=== PATIENT | female | born 1955 | race Caucasian/White ===

== ENCOUNTER 2022-05-15 12:50 | Emergency (ER) | payer MEDICARE, OTHER ==
--- NOTE | 2022-05-15 13:54 | ERPHSYRPT ---
- History of Present Illness Time Seen by Provider: 05/15/22 13:09 Source: patient Exam Limitations: no limitations Patient Subjective Stated Complaint: Dog bite. Patient bitten by own dog. States she has 2 Goldendoodle dogs and they were fighting over food when she reached between them to grab one's collar and was biten. Describes dogs as non- aggressive in nature. Triage Nursing Assessment: Patient alert and oriented and answering questions ap propriately. U-shaped laceration to back of right hand. Measures 4cm X 5.5cm. Small amount of active bleeding noted. Small abrasion also noted to 2nd digit of same hand. Abrasion measures 0.2cm X 1.2cm. No bleeing noted at this time. CMS checks to right hand/fingers WNL. Physician History: 67-year-old female unsure about tetanus status presented in the ER after she got bit by her own dog. Patient has 2 dog and they were fighting lower food and she held 1 with a collar and got bit. She has a flap laceration dorsum of right hand and also on the second digit some abrasion. Sharp shooting moderate intensity pain with movements at the fingers but no numbness or tingling/weakness in the fingers. Minimal pain while resting. Timing/Duration: today Quality: painful Severity: moderate Location: extremities Possible Causes: other Associated Symptoms: denies symptoms Allergies/Adverse Reactions: No Known Drug Allergies Allergy (Verified 05/15/22 12:54) Home Medications: Ezetimibe 10 mg [Zetia 10 MG] 1 tab PO DAILY 05/15/22 [History] LORazepam [Lorazepam] 1 tab PO HS 05/15/22 [History] Metoprolol Succinate 25 mg Xl* [Toprol-Xl 25MG Tablets] 1 tab PO DAILY 05/15/22 [History] Verapamil HCl [Verapamil ER] 1 cap PO DAILY 05/15/22 [History] Hx Tetanus, Diphtheria Vaccination/Date Given: No (NOT TETANUS) Hx Influenza Vaccination/Date Given: Yes Hx Pneumococcal Vaccination/Date Given: Yes Immunizations Up to Date: Yes Travel Risk - International Travel Have you traveled outside of the country in past 3 weeks: No - Coronavirus Screening Are you exhibiting any of the following symptoms?: No Close contact with a COVID-19 positive Pt in past 14-21 Days: No - Vaccine Status Have you recieved a Covid-19 vaccination: Yes Log Check Scaler: Pfizer - Vaccination Dates Date of 2cond Vaccination (if applicable): 2020 - Review of Systems Constitutional: No Symptoms Eyes: No Symptoms Respiratory: No Symptoms Cardiac: No Symptoms Abdominal/Gastrointestinal: No Symptoms Musculoskeletal: Injury Skin: Skin Lesions Neurological: No Symptoms Endocrine: No Symptoms Hematologic/Lymphatic: No Symptoms - Past Medical History Pertinent Past Medical History: Yes Cardiac History: High Cholesterol, Hypertension Respiratory History: Other Other Medical History: COVID in August 2021, - Past Surgical History Past Surgical History: Yes Cardiac: Cardiac Catheterization Other Surgical History: Trigger finger surgery on right middle finger - Social History Smoking Status: Never smoker Exposure to second hand smoke: No Drug Use: none Patient Lives Alone: No - Nursing Vital Signs Nursing Vital Signs: Initial Vital Signs Pulse Rate 91 H 05/15/22 12:55 Respiratory Rate 20 05/15/22 12:55 Blood Pressure 128/78 05/15/22 12:55 O2 Sat by Pulse Oximetry 94 L 05/15/22 12:55 Pain Scale Pain Intensity 6 - Physical Exam General Appearance: no apparent distress, alert Eye Exam: PERRL/EOMI Neck Exam: normal inspection, full range of motion Respiratory Exam: normal breath sounds, lungs clear Cardiovascular Exam: regular rate/rhythm, normal heart sounds Extremity Exam: lacerations (6.5 x 6 cm laceration curved with irregular edges on dorsum of right hand with visible tendons but no tendon lesion obviously noticed. Intact distal neurovascular. 1 cm laceration right index finger.), swelling, tenderness Skin Exam: normal color SpO2 Interpretation: normal SpO2: 94 O2 Delivery: Room Air Procedures - Laceration/Wound Repair Right Hand Time of Procedure: 13:52 Wound Location: Right, hand Wound Length (cm): 7 Wound's Depth, Shape: irregular Wound Explored: clean Irrigated: Yes Hibiclens Prep: Yes Anesthesia: 1% Lidocaine Volume Anesthetic (ccs): 7 Wound Debrided: minimal Wound Repaired With: sutures Suture Size/Type: 4-0 Number of Sutures: 24 Layer Closure?: No Sterile Dressing Applied?: Yes Splint Applied?: Yes Ordered Tests: Medication Summary Discontinued Medications Generic Name Dose Route Start Last Admin Trade Name Freq PRN Reason Stop Dose Admin Amoxicillin/Clavulanate Potassium 875 mg 05/15/22 13:55 05/15/22 14:17 Amox Tr/Potassium Clavulanate 875 Mg Tablet PO 05/15/22 13:56 875 mg STAT ONE Administration Amoxicillin/Clavulanate Potassium Confirm 05/15/22 14:11 Amox Tr/Potassium Clavulanate 875 Mg Tablet Administered 05/15/22 14:12 Dose 875 mg .ROUTE .STK-MED ONE Diphtheria/Tetanus/Acell Pertussis 0.5 ml 05/15/22 13:55 05/15/22 14:19 Tdap --Diph,Pertuss(Acell),Tet Vac/Pf 0.5 Ml Vial IM 05/15/22 13:56 0.5 ml .ONCE ONE Administration Diphtheria/Tetanus/Acell Pertussis Confirm 05/15/22 14:12 Tdap --Diph,Pertuss(Acell),Tet Vac/Pf 0.5 Ml Vial Administered 05/15/22 14:13 Dose 0.5 ml IM .STK-MED ONE Lidocaine HCl Confirm 05/15/22 14:15 Lidocaine Hcl 1% 20 Ml Mdv 20 Ml Ml Administered 05/15/22 14:16 Dose 1 ml .ROUTE .STK-MED ONE - Progress Progress: improved Progress Note: 05/15/22 13:53 Laceration is repaired. Recommended outpatient hand surgery follow-up as it is possible superficial skin will grow necrotic. We will give antibiotics. Discussed signs symptoms of worsening needing return to ER which she seems understanding. Counseled pt/family regarding: diagnosis, need for follow-up - Departure Departure Disposition: Home Clinical Impression: Hand laceration, Dog bite Condition: Stable Critical Care Time: No Referrals: JUAN CARLOS FERGUSON NP [Primary Care Provider] - Follow up/PCP as directed (1-2 days for reevaluation) CORNEL FISHER MD [NON-STAFF PHY W/O PRIVILEGES] - Follow up/PCP as directed (1-2 days for reevaluation) Instructions: Animal Bites (DC) Additional Instructions: Take Tylenol/ibuprofen as needed for pain. Continue with antibiotics. Follow- up with primary care and hand surgery for reevaluation. Return to ER for increasing pain swelling redness, difficulty movements of fingers, bluish discoloration of fingers, fever chills etc. Prescriptions: Ibuprofen 600 mg PO Q6HPRN PRN 10 Days #20 tablet PRN Reason: Pain Amox Tr/Potass Clav. 875 mg [Augmentin 875-125 Tablet] 875 mg PO BID #14 tablet
[2022-05-15] MEDS ORDERED: Adacel Vial IM ONE ×2 (13:55→14:12)
[2022-05-15] MEDS ORDERED: Augmentin 875-125 Tablet PO ONE (13:55)
[2022-05-15] MEDS ORDERED: Augmentin 875-125 Tablet ONE (14:11)
[2022-05-15] MEDS ORDERED: XYLOCAINE 1% HCL 20 ML MDV ONE (14:15)
[2022-05-15 15:16] VITALS: BP 123/66; PULSE 71
[2022-05-15 19:11] VITALS: O2SAT 94
== END 2022-05-15 15:00 | disposition home or self-care (01) ==
LOC: ED 12:50
DX: S61.451A Open bite of right hand, initial encounter (principal); W54.0XXA Bitten by dog, initial encounter; Y93.K9 Activity, other involving animal care; M79.641 Pain in right hand; E78.5 Hyperlipidemia, unspecified; I10 Essential (primary) hypertension; Z86.16 Personal history of COVID-19; Z79.899 Other long term (current) drug therapy
CPT/HCPCS: 12002; 90471; 90715; 99283; A9270-GY

== ENCOUNTER 2024-12-10 03:12 | Emergency (ER) | payer MEDICARE, OTHER ==
[2024-12-10] MEDS ORDERED: XYLOCAINE 1%/Epi 1:100000 MDV 20 ML ONE (03:22)
[2024-12-10 04:00] VITALS: TEMP 97
[2024-12-10] MEDS: XYLOCAINE 1%/Epi 1:100000 MDV 20 ML IJ ONE (04:03)
[2024-12-10 04:12] LABS: Absolute Neutrophil Ct (ANC) 5.11 x10^3/uL (1.56-6.13); BASOPHIL % 0.7 % (0.1-1.2); Basophil (Absolute #) 0.06 x10^3/uL (0.01-0.08); Eosinophil % 0.6 % (0.7-5.8); Eosinophil (Absolute #) 0.05 x10^3/uL (0.04-0.36); Hematocrit 35.4 % (34.1-44.9); Hemoglobin 12.4 g/dL (11.2-15.7); IMMATURE GRAN # 0.03 x10^3u/L (0.001-0.031); IMMATURE GRAN % 0.4 % (0.001-0.429); Lymphocyte (Absolute #) 2.25 x10^3/uL (1.18-3.74); Mean Cell Volume 95.7 fL (79.4-94.8); Mean Corpuscular Hemoglobin 33.5 pg (25.6-32.2); Mean Platelet Volume 9.2 fL (9.4-12.3); Monocyte (Absolute #) 0.55 x10^3/uL (0.24-0.86); Monocytes % 6.8 % (4.7-12.5); Neutrophil % 63.5 % (34.0-71.1); Platelet Count 276 x10^3/uL (182-369); Red Cell Distribution Width 12.2 % (11.7-14.4); White Blood Count 8.1 x10^3/uL (3.98-10.04)
--- NOTE | 2024-12-10 04:19 | ERPHSYRPT ---
- History of Present Illness Time Seen by Provider: 12/10/24 03:30 Source: patient Exam Limitations: no limitations Patient Subjective Stated Complaint: pt states she tripped over her dog and hit her head on the edge of the mantle. denies loss of consciousness Triage Nursing Assessment: pt alert and oriented. answers questions approp. pt ambulates to room with steady gait. respirations nonlabored. skin warm and dry. pt bleeding from the back of the head. laceration approx 3x1 cm. pupils equal and reactive. pt moves all extremities without diff. Physician History: Patient tripped over her dog and hit the back of her head on the mantle. No LOC, but unable to stop bleeding. No previous head injury. Denies weakness, change in speech, difficulty in swallowing. Occurred: just prior to arrival Severity: moderate Head Injury Location: occipital Method of Injury: direct blow, fell Loss of Consciousness: no loss of consciousness Associated Symptoms: headaches, No nausea, No vomiting, No syncope, No weakness Allergies/Adverse Reactions: No Known Drug Allergies Allergy (Verified 12/10/24 03:21) Home Medications: Ezetimibe 10 mg [Zetia 10 MG] 1 tab PO DAILY 05/15/22 [History] LORazepam [Lorazepam] 1 tab PO HS 05/15/22 [History] Metoprolol Succinate 25 mg Xl* [Toprol-Xl 25MG Tablets] 1 tab PO DAILY 05/15/22 [History] Verapamil HCl [Verapamil ER] 1 cap PO DAILY 05/15/22 [History] Hx Tetanus, Diphtheria Vaccination/Date Given: Yes (2022) Hx Influenza Vaccination/Date Given: Yes Hx Pneumococcal Vaccination/Date Given: Yes Travel Risk - International Travel Have you traveled outside of the country in past 3 weeks: No - Emerging Infectious Disease Are you exhibiting symptoms associated with any current EIDs: No - Review of Systems All Other Systems: Reviewed and Negative - Past Medical History Pertinent Past Medical History: Yes Cardiac History: High Cholesterol, Hypertension Respiratory History: Other Other Medical History: COVID in August 2021, - Past Surgical History Past Surgical History: Yes Cardiac: Cardiac Catheterization Other Surgical History: Trigger finger surgery on right middle finger - Social History Smoking Status: Never smoker Exposure to second hand smoke: No Drug Use: none Patient Lives Alone: No - Social Determinants of Health Will the patient participate in the screening: Declined to provide - Nursing Vital Signs Nursing Vital Signs: Initial Vital Signs Temperature 97.0 F 12/10/24 03:21 Pulse Rate 74 12/10/24 03:21 Respiratory Rate 16 12/10/24 03:21 Blood Pressure 142/83 12/10/24 03:21 O2 Sat by Pulse Oximetry 96 12/10/24 03:21 Pain Scale Pain Intensity 3 - [place] Coma Score Best Eye Response (Elise): (4) open spontaneously Best Verbal Response (Elise): (5) oriented Best Motor Response ([place]): (6) obeys commands Elise Total: 15 - Physical Exam General Appearance: no apparent distress Head Injury: active bleeding, lacerations, swelling, tenderness Eye Exam: bilateral eye: normal inspection, PERRL, EOMI ENT Exam: airway nml, evidence of ENT injury Neck Exam: supple, trachea midline, full range of motion, normal alignment, No tenderness Mental Status Exam: alert, oriented x 3, 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 Exam: normal hearing, normal speech, PERRL Motor/Sensory Exam: no motor deficit, no sensory deficit, no pronator drift, CN II-XII intact SpO2 Interpretation: normal SpO2: 96 O2 Delivery: Room Air Procedures - Laceration/Wound Repair Right Occipital Time of Procedure: 03:45 Wound Location: Right, head (occipital) Wound Length (cm): 3 Wound's Depth, Shape: superficial, linear, flap Wound Explored: clean Irrigated: Yes Hibiclens Prep: Yes Anesthesia: 1% lidocaine w/ Epi Volume Anesthetic (ccs): 10 Wound Debrided: minimal Wound Repaired With: sutures, Justin Suture Size/Type: 3-0, nylon Number of Sutures: 3 (used to approximate wound then followed by justin and all 3 Nylon sutures removed) Layer Closure?: No Sterile Dressing Applied?: Yes - Course Nursing assessment & vital signs reviewed: Yes Ordered Tests: Active Orders 24 hr Category Date Time Status HEAD WITHOUT CONTRAST [CT] Stat Exams 12/10/24 03:58 Completed CBC W DIFF Stat Lab 12/10/24 04:10 Completed Medication Summary Discontinued Medications Generic Name Dose Route Start Last Admin Trade Name Freq PRN Reason Stop Dose Admin Lidocaine/Epinephrine Confirm 12/10/24 03:22 Lidocaine Hcl/Epinephrine 1% 20 Ml Administered 12/10/24 03:23 Dose 5 ml .ROUTE .STK-MED ONE Lidocaine/Epinephrine 10 ml 12/10/24 04:02 12/10/24 04:03 Lidocaine Hcl/Epinephrine 1% 20 Ml IJ 12/10/24 04:03 10 ml STAT ONE Administration Lab/Rad Data: Laboratory Result Diagrams 12/10/24 04:10 Laboratory Results 12/10/24 Range/Units 04:10 WBC 8.1 (3.98-10.04) x10^3/uL RBC 3.70 L (3.93-5.22) x10^6/uL Hgb 12.4 (11.2-15.7) g/dL Hct 35.4 (34.1-44.9) % MCV 95.7 H (79.4-94.8) fL MCH 33.5 H (25.6-32.2) pg MCHC 35.0 (32.2-35.5) g/dL RDW 12.2 (11.7-14.4) % Plt Count 276 (182-369) x10^3/uL MPV 9.2 L (9.4-12.3) fL Gran % 63.5 (34.0-71.1) % Immature Gran % (Auto) 0.4 (0.001-0.429) % Nucleat RBC Rel Count 0.0 (0.00-0.2) % Eos # (Auto) 0.05 (0.04-0.36) x10^3/uL Immature Gran # (Auto) 0.03 (0.001-0.031) x10^3u/L Absolute Lymphs (auto) 2.25 (1.18-3.74) x10^3/uL Absolute Monos (auto) 0.55 (0.24-0.86) x10^3/uL Absolute Nucleated RBC 0.00 (0.00-0.012) x10^3u/L Lymphocytes % 28.0 (19.3-51.7) % Monocytes % 6.8 (4.7-12.5) % Eosinophils % 0.6 L (0.7-5.8) % Basophils % 0.7 (0.1-1.2) % Absolute Granulocytes 5.11 (1.56-6.13) x10^3/uL Basophils # 0.06 (0.01-0.08) x10^3/uL - Progress Progress: improved Progress Note: Wound cleaned and repaired with justin, hemostasis achieved after justin. Hb ordered. CT head ordered. No neuro deficits. 12/10/24 04:[address] head reviewed, no obvious fracture or bleed appreciated, official read pending. Patient declines Tylenol. Discussed concussion treatment and return precautions. Recommended f/u with PCP in 7-10 days for staple removal. 12/10/24 05:49 CT showd area of asymmetric hypodensity in the right occipital region at the site of impact, can be non hemorrhagic contusion, follow up needed, subgaleal hematoma in right occipital region 52mm x 7mm, no fracture, no intra/extra-axial hematoma. Consulted tele neuro to get their opinion on follow up of hypodensity, spoke with them at 0548 and they felt this was more artifact, recommend outpatient neuro f/u or MRI brain after justin removed if there is concern at that time. Will DC home at this time. Counseled pt/family regarding: lab results, diagnosis, need for follow-up, rad results Medical Desision Making - Diagnostic Testing Diagnostic test were ordered, analyzed, and reviewed by me: Yes Radiological Interpretation: Interpreted by me, Reviewed by me, Teleradiologist Report - Risk of complications The pt has a mod risk of morbidity or mortality based on: Need for minor surgical intervention in patient with know risk factors - Departure Departure Disposition: Home Clinical Impression: Head injury without skull fracture, Laceration of occipital region of scalp without complication, Subgaleal fluid collection Condition: Good Critical Care Time: No Referrals: JUAN CARLOS FERGUSON NP [Primary Care Provider] - Follow up/PCP as directed Instructions: Concussion, Adult (DC), Laceration Repair With [facility] Additional Instructions: MRI brain after justin removed if clinical concern remains to evaluate right occipital hypodensity.
--- NOTE | 2024-12-10 05:06 | XRAY ---
CLINICAL HISTORY: fall, bleeding, large hematoma COMPARISON: None. TECHNIQUE: An axial non-contrast CT scan of the brain was performed from the skull base to the high parietal region. One of the following dose reduction techniques was utilized for this exam: Automated exposure control, adjustment of the mA and/or kV according to patient size, and use of iterative reconstruction. CTDI: 53.92 mGy, DLP: 910 mGy-cm. FINDINGS: Brain Parenchyma: There are a few tiny ill-defined [id number] areas noted in the deep white matter bilaterally, suggestive of microvascular ischemic changes. An area of asymmetric hypodensity in the right occipital region(image 32/61). Normal attenuation of the rest of the cerebral hemispheres, cerebellum, and brainstem. No evidence of acute infarction, hemorrhage, or mass effect. There is sub galeal hematoma in the right occipital region, measuring 52 x 7 mm, with overlying surgical justin. Ventricular System: Ventricles are normal in size and configuration. No evidence of hydrocephalus or ventricular enlargement. Subarachnoid Spaces: The cortical sulci and basal cisterns are prominent consistent with senile changes. No evidence of subarachnoid hemorrhage or extra-axial fluid collections. Cerebellum and Brainstem: Normal size and signal. No masses, lesions, or areas of abnormal signal. Orbits: Normal appearance of the globes, optic nerves, and extraocular muscles. No evidence of orbital masses. Sinuses: Clear paranasal sinuses. No evidence of sinusitis or mucosal thickening. Mastoid Air Cells: Clear mastoid air cells. No evidence of mastoiditis. Skull: Normal skull morphology. No evidence of any underlying acute fracture. IMPRESSION: 1. No evidence of any intra/extra-axial hematoma. 2. An area of asymmetric hypodensity in the right occipital region at the site of impact (image 32/61), can be non-hemorrhagic contusion. Needs to follow up. 3. Subgaleal hematoma in the right occipital region, measuring 52 x 7 mm, with overlying wound and surgical justin. 4. No evidence of any underlying acute fracture. 5. Age-related involutional and microvascular ischemic changes. Electronically Signed by: Lulú Zelaya MD. (12/10/2024 05:02:47 EST)
[2024-12-10] MEDS: ZOFRAN ODT 4 MG PO ONE (05:58)
[2024-12-10] MEDS ORDERED: ZOFRAN ODT 4 MG ONE (05:58)
--- NOTE | 2024-12-10 06:16 | PCM.CONS ---
History of Present Illness - Neuro Consultation ED Arrival Date & Time: 12/10/24 03:12 Providers: Attending Provider: ED Provider: ARAVIND SLOAN MD Consulting Provider: ASHOK GOODMAN MD cc:: The requesting physician will be sent a copy of the consult. - History of Present Illness HPI: The patient is a 69F Review of Systems - Review of Systems Review of Systems (Narrative): Pertinent positive and negative findings as per HPI. All other systems negative. - Past Medical History Past Medical History: Yes Cardiac History: High Cholesterol, Hypertension Respiratory History: Other Comment: COVID in August 2021, - Past Surgical History Past Surgical History: Yes Cardiac History: Cardiac Catheterization Other Surgical History: Trigger finger surgery on right middle finger - Social History Smoking Status: Never smoker Exposure to second hand smoke: No Alcohol: Rarely Drug Use: none - Social Determinants of Health Will the patient participate in the screening: Declined to provide Physical Exam - Vital Signs Vital Signs: Vital Signs - 24 hr 12/10/24 12/10/24 12/10/24 03:21 04:21 04:28 Temperature 97.0 F Pulse Rate 74 Respiratory 16 Rate Blood Pressure 93/58 104/68 Blood Pressure 142/83 [Right Arm] O2 Sat by Pulse 96 96 98 Oximetry 12/10/24 12/10/24 12/10/24 04:30 05:00 05:30 Temperature Pulse Rate 72 69 Respiratory 18 17 Rate Blood Pressure 101/69 92/62 128/71 Blood Pressure [Right Arm] O2 Sat by Pulse 93 L 97 Oximetry 12/10/24 05:54 Temperature Pulse Rate Respiratory Rate Blood Pressure Blood Pressure [Right Arm] O2 Sat by Pulse 96 Oximetry Results - Labs Lab/Micro Results: Lab Results-Last 24 Hours 12/10/24 Range/Units 04:10 WBC 8.1 (3.98-10.04) x10^3/uL RBC 3.70 L (3.93-5.22) x10^6/uL Hgb 12.4 (11.2-15.7) g/dL Hct 35.4 (34.1-44.9) % MCV 95.7 H (79.4-94.8) fL MCH 33.5 H (25.6-32.2) pg MCHC 35.0 (32.2-35.5) g/dL RDW 12.2 (11.7-14.4) % Plt Count 276 (182-369) x10^3/uL MPV 9.2 L (9.4-12.3) fL Gran % 63.5 (34.0-71.1) % Immature Gran % (Auto) 0.4 (0.001-0.429) % Nucleat RBC Rel Count 0.0 (0.00-0.2) % Eos # (Auto) 0.05 (0.04-0.36) x10^3/uL Immature Gran # (Auto) 0.03 (0.001-0.031) x10^3u/L Absolute Lymphs (auto) 2.25 (1.18-3.74) x10^3/uL Absolute Monos (auto) 0.55 (0.24-0.86) x10^3/uL Absolute Nucleated RBC 0.00 (0.00-0.012) x10^3u/L Lymphocytes % 28.0 (19.3-51.7) % Monocytes % 6.8 (4.7-12.5) % Eosinophils % 0.6 L (0.7-5.8) % Basophils % 0.7 (0.1-1.2) % Absolute Granulocytes 5.11 (1.56-6.13) x10^3/uL Basophils # 0.06 (0.01-0.08) x10^3/uL - Radiology Orders Radiology Orders: Radiology Procedures Category Date Time Status HEAD WITHOUT CONTRAST [CT] Stat Exams 12/10/24 03:58 Completed Impressions & Recommendations - ED Arrival Time ED Arrival Date & Time: ED Arrival Date and Time 12/10/24 03:12 Last known well time: - NIHSS IV Thrombolysis Standard of Care: IV thrombolysis as a standard of care in acute stroke discussed with ARAVIND SLOAN MD. Risk, benefits, and options of IV thrombolytic therapy for acute ischemic stroke were discussed with the patient/family LM FOSTER. We discussed that use of IV tenecteplase is in line with national stroke guidelines. We discussed that risks of IV thrombolytic use include intracranial hemorrhage, other fatal bleeding risks, and angioedema. Alternatives of treatment, including not proceeding with thrombolytic therapy were discussed. - Recommendations Recommendations: [facility] Consultation Physician Signature This document was electronically signed by: Ashok Goodman MD Consult Cover Page FROM: [id number], Call Back Number: [phone] SUBJECT: Consult Recommendations Date and Time of Report: 12/10/2024 06:06 AM ET Items Contained in this Document: Neurology Consult Note Consult Information Member Facility: [facility] Facility Consult ID: [id number] Facility Time Zone: ET Date and Time of Request: 12-10-2024 05:11 AM ET Requesting Clinician: DR. SLOAN Patient Name: Lm Foster Date of : 1955 Gender: Female Patient identity was confirmed at the beginning of the consult with the patient/family/staff using two personal identifiers: Patient name and Reason for Consult Reason for Consult: Other Emergency General Chief Complaint: Trip, fall, and occipital head trauma Patient Location and Admission Status: ED- Patient is not admitted Family Members and Medical Staff Present During Exam: RN assisting History of Present Illness: 69 year old hypertensive woman with a history of hyperlipidemia, who reported tripped over her dog's leash, fell backwards and [facility] She denied any premonitory symptoms, such as lightheadedness or vertigo. She denied loss of consciousness. Upon arrival in the ER an occipital scalp laceration was closed with justin. She reports no headache, dizziness, visual changes, focal weakness, or speech difficulties. Number of Documented HPI Elements: 1-3 Medical History Medical History: Hyperlipidemia, Hypertension Past Procedures: None Pertinent Family History: Unknown Allergies Allergies: NKDA Medications Anti-Coagulants: None Anti-Platelets: None Other Medications: Ezetimibe, Ibuprofen, Lorazepam, Metoprolol, Verapamil Social History Alcohol Use: Current Drug Use: None Tobacco Use: None Other Social History : Occasional social use of alcohol Vital Signs Temperature F: 97.0 Temperature C: 36.1 Blood Pressure (mmHg): 128/71 Heart Rate (bpm): 66 Respiration Rate (/min): 18 O2 Sat (%): 96 Date and Time: 12/10/2024 05:53:08 AM ET Review Of Systems General, Constitutional: All Negative Neurological: Pertinent Positives/Negatives Neurological comments: No history of headache or other neurological symptoms Cardiovascular: Pertinent Positives/Negatives Cardiovascular Comments: No chest pain, palpitations, or history of CAD. Ophthalmology: Pertinent Positives/Negatives Ophthalmology comments: No diplopia, visual blurring, or visual loss NIH Stroke Scale NIH Stroke Scale Score: 0 1. Level of Consciousness: 0 : alert; keenly responsive. 1a. LOC Questions: 0 : Answers both questions correctly. 1b. LOC Commands: 0 : Performs both tasks correctly. 2. Best Gaze: 0 : Normal. 3. Visual: 0 : No visual loss. 4. Facial Palsy: 0 : Normal symmetrical movements. 5a. Motor Left Arm: 0 : No drift; limb holds 90 (or 45) degrees for full 10 seconds. 5b. Motor Right Arm : 0 : No drift; limb holds 90 (or 45) degrees for full 10 seconds. 6a. Motor Left Le : No drift; leg holds 30-degree position for full 5 seconds. 6b. Motor Right Le : No drift; leg holds 30-degree position for full 5 seconds. 7. Limb Ataxia: 0 : Absent. 8. Sensory: 0 : Normal; no sensory loss. 9. Best Language: 0 : No aphasia; normal. 10. Dysarthria: 0 : Normal. 11. Extinction and inattention (formerly Neglect) : 0 : No abnormality. NIHSS Entry Time: 12/10/2024 06:00:02 AM ET Exam NEUROLOGICAL EXAMINATION MENTAL STATUS: She was awake, alert, and fully oriented. Speech was clear. Language was fluent. CRANIAL NERVES: Visual barnett were full. Extraocular movements were full and conjugate. There was no ptosis. Facial sensation was intact to light touch. There was no facial asymmetry. MOTOR: There was no pronator drift. Fine motor function was intact in both hands. There was no fixed arm roll. She was able to elevate each leg off the bed for 5 seconds. SENSORY: Sensation was intact to light touch throughout COORDINATION: There was no nystagmus or dysmetria Clinician assisting with exam: RN assisting Labs and Imaging Labs available?: Yes WBC (mcL): 8.1 HGB (g/dL): 12.4 HCT (%): 35.4 PLT (mcL): 276 CT: Right occipital subgaleal scalp hematoma, chronic microvascular changes. Subtle hypodensity in the right occipital region which may be artifact. Non- hemorrhagic contusion is less likely Assessment and Recommendations Assessment: 69 year old hypertensive woman with a history of hyperlipidemia who presents with an occipital scalp laceration after a mechanical trip and fall. She has a normal neurological examination and no post-concussive symptoms at this time. A subtle hypodensity noted in the right occipital region on CT may be artifact. A non-hemorrhagic contusion is less likely. A follow-up CT as an outpatient could be obtained after the scalp justin are removed. No other neurological interventions are indicated at this time. Recommendations: 1. Outpatient Neurology follow-up after removal of scalp justin. 2. Return to the ER if any neurological symptoms develop 3. Analgesics PRN headache Disposition: Neurologically clear for discharge to OP follow up Diagnosis Impression: Closed head trauma Case discussed with: Dr. Sloan Inclusion Criteria Time Last Known Well: Unknown Neurological deficit considered to be disabling within 4.5 h of ischemic stroke symptom onset or patient last known well: No BP < 185/110: Yes Glucose > 50 mg/dL: Yes Exclusion Criteria Acute head trauma or recent severe head trauma within the previous 3 months: No Symptoms suggesting subarachnoid hemorrhage: No Elevated blood pressure despite IV medications (>185/>110 mm Hg): No Known coagulopathy - platelets <100,000/mm3, INR >1.7, aPTT >40s, PT >15s (do not wait for labs unless known thrombocytopenia or anticoagulation): No Thrombin inhibitors or factor Xa inhibitors - unless aPTT, INR, platelet count, ECT, TT, or appropriate direct factor Xa activity assays are normal or the patient has not received a dose for >48 hours (with normal renal function): No LMWH on anticoagulant (full treatment) dosing within < 24 hours: No Concomitant administration of IV Abciximab, or IV aspirin within 90 minutes after the start of IV alteplase initiation: No Extensive regions of marked clear and obvious hypodensity representing early ischemic changes irreversible injury: No Acute intracranial hemorrhage: No History of intracranial hemorrhage: No Symptoms consistent with infective endocarditis: No Known or suspected aortic arch dissection: No GI malignancy or recent GI bleed within 21 days: No Mild nondisabling stroke (NIHSS 0-5): No Prior ischemic stroke within previous 3 months: No Intracranial/intraspinal surgery within 3 months: No Intra-axial intracranial neoplasm: No Relative Exclusion Criteria One or more of the above relative contraindications render IV Thrombolysis inadvisable in my judgment.: No Thrombolysis Recommendation Thrombolysis recommended?: No Reason Thrombolysis not recommended Comments: No clinical signs of acute stroke. ICD-10 Code ICD-10 Code (Primary): S09.90XA : Unspecified injury of head, initial encounter ICD-10 Code: I10 : Essential (primary) hypertension ICD-10 Code: E78.5 : Hyperlipidemia, unspecified Attestation Interaction Mode: Video & Phone Time of Phone Call : 12-10-2024 05:45 AM ET Time of Video Call : 12-10-2024 05:37 AM ET Interaction Attestation: Clinical telemedicine services delivered using HIPAA- compliant interactive video-audio telecommunications while the patient and the rendering provider were not in the same physical location. Written report was provided to the requesting provider. Evaluation Duration (mins): 39 Oconnell Timer Summary ED Arrival Date and Time: 12-09-2024 03:12 AM ET Date and Time of Request: 12-10-2024 05:11 AM ET Physician Signature This document was electronically signed by: Ashok Goodman MD Assessment & Plan - Encounter Encounter: "The entirety of this encounter was performed via Telemedicine using audio and visual "
[2024-12-10 06:17] VITALS: BP 124/68; PULSE 64; RESP 16; O2SAT 97
== END 2024-12-10 06:18 | disposition home or self-care (01) ==
LOC: ED 03:12
DX: S01.01XA Laceration without foreign body of scalp, initial encounter (principal); W01.0XXA Fall on same level from slipping, tripping and stumbling without subsequent striking against object, initial encounter; R51.9 Headache, unspecified; E78.5 Hyperlipidemia, unspecified; I10 Essential (primary) hypertension; Z79.899 Other long term (current) drug therapy
CPT/HCPCS: 12002; 36415; 70450; 85025; 99284; Q3014; Q0162